=== PATIENT | female | born 1955 | race Caucasian/White ===

== ENCOUNTER 2018-11-23 08:48 | Inpatient (IN) ==
--- NOTE | 2018-10-31 16:26 | PAT Medication Instructions ---
Medication Instructions Date of Service October 31, 2018 Home Medications Naprosyn 1 dose PO UD PRN acetaminophen [Tylenol Extra Strength] 500 mg PO Q8H PRN albuterol sulfate 1 puff INHALATION Q6H PRN amitriptyline 10 mg PO HS ascorbic acid (vitamin C) 500 mg PO BID [Excedrin Migraine] 2 tab PO Q6H PRN calcium carbonate-vitamin D3 1 tab PO QPM docusate sodium 50 mg PO QPM fenofibrate 160 mg PO QPM hydrochlorothiazide 12.5 mg PO QPM lisinopril 20 mg PO QPM loratadine 10 mg PO QAM lorazepam [Ativan] 0.5 mg PO TID PRN melatonin 5 mg PO HS multivitamin 1 tab PO QAM sennosides [Senokot] 8.6 mg PO QPM simvastatin 40 mg PO PM tramadol 50 mg PO Q8H PRN ASK your surgeon for instructions Naprosyn 1 dose PO UD PRN [Excedrin Migraine] 2 tab PO Q6H PRN DO NOT take the morning of surgery ascorbic acid (vitamin C) 500 mg PO BID loratadine 10 mg PO QAM multivitamin 1 tab PO QAM Take morning of surgery With a small sip of water, OTHERWISE NOTHING TO EAT OR DRINK AFTER MIDNIGHT: acetaminophen [Tylenol Extra Strength] 500 mg PO Q8H PRN (if needed, may be taken up to four hours before surgery) albuterol sulfate 1 puff INHALATION Q6H PRN (if needed, and bring with you to the hospital) lorazepam [Ativan] 0.5 mg PO TID PRN (if needed) tramadol 50 mg PO Q8H PRN (if needed, may be taken up to four hours before surgery) Take evening before surgery acetaminophen [Tylenol Extra Strength] 500 mg PO Q8H PRN (if needed) albuterol sulfate 1 puff INHALATION Q6H PRN (if needed) amitriptyline 10 mg PO HS ascorbic acid (vitamin C) 500 mg PO BID calcium carbonate-vitamin D3 1 tab PO QPM docusate sodium 50 mg PO QPM fenofibrate 160 mg PO QPM hydrochlorothiazide 12.5 mg PO QPM lisinopril 20 mg PO QPM lorazepam [Ativan] 0.5 mg PO TID PRN (if needed) melatonin 5 mg PO HS sennosides [Senokot] 8.6 mg PO QPM simvastatin 40 mg PO PM tramadol 50 mg PO Q8H PRN (if needed) Other Notes If you have any questions please call us at [phone] or [phone] or [phone] or [phone]
--- NOTE | 2018-11-01 10:52 | Anesthesiology Consultation ---
Date of Service November 01, 2018 Assessment & Plan (1) Encounter for pre-operative examination: PCP Clearance 10/27/18: "Cleared for surgery as scheduled 11/23/18. Anticoagulation per ortho surgeon." Chart Review Chart Review: Acceptable Risk for Surgery and Patient seen in Pre Admission Testing Teaching & Discussion Instructed NPO after midnight before surgery, except medications with 15 cc of water. Medication instructions provided according to the PAT guidelines. History Surgery Operation Date: 11/23/18 07:30 Proposed Procedures p Left Total Knee Arthroplasty - Kodak Winters MD Height/Weight Height: 5 ft 1 in Weight: 71.7 kg Allergies Allergy/AdvReac Type Severity Reaction Status Date / Time No Known Allergies Allergy Verified 10/27/18 09:39 Medications Home Medications Medication Instructions Recorded Confirmed Last Taken Naprosyn 1 dose PO UD PRN 10/27/18 10/27/18 Unknown acetaminophen [Tylenol Extra 500 mg PO Q8H PRN 10/27/18 10/27/18 Unknown Strength] albuterol sulfate 1 puff INHALATION Q6H PRN 10/27/18 10/27/18 Unknown amitriptyline 10 mg PO HS 10/27/18 10/27/18 Unknown ascorbic acid (vitamin C) [Vitamin 500 mg PO BID 10/27/18 10/27/18 Unknown C] buwdbdh-nvxuyfbgzrhwe-hhdbtmge 2 tab PO Q6H PRN 10/27/18 10/27/18 Unknown [Excedrin Migraine] calcium carbonate-vitamin D3 1 tab PO QPM 10/27/18 10/27/18 Unknown [Calcium 600 + D(3)] docusate sodium 50 mg PO QPM 10/27/18 10/27/18 Unknown fenofibrate 160 mg PO QPM 10/27/18 10/27/18 Unknown hydrochlorothiazide 12.5 mg PO QPM 10/27/18 10/27/18 Unknown lisinopril 20 mg PO QPM 10/27/18 10/27/18 Unknown loratadine 10 mg PO QAM 10/27/18 10/27/18 Unknown lorazepam [Ativan] 0.5 mg PO TID PRN 10/27/18 10/27/18 Unknown melatonin 5 mg PO HS 10/27/18 10/27/18 Unknown gzsyamyehaux-aekmytlh-sdnufy 1 tab PO QAM 10/27/18 10/27/18 Unknown [Multivitamin 50 Plus] sennosides [Senokot] 8.6 mg PO QPM 10/27/18 10/27/18 Unknown simvastatin 40 mg PO PM 10/27/18 10/27/18 Unknown tramadol 50 mg PO Q8H PRN 10/27/18 10/27/18 Unknown Past Medical History Medical History Anxiety Asthma RARELY USES PRN INH Cardiac murmur Mild tricuspid regurg noted on 07/12/18 echo done to evaluate murmur. Murmur not appreciated on exam at [facility]. Chronic headache Depression History of ovarian cyst Had ex lap for this 2/2 rupture, ended up having appy. 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 Spinal stenosis Exercise / Class Metabolic Activity II 4-5 Yardwork/Stairs/Walk up hill (denies CP or SOB with stairs) Past Family History Family History Aunt Family history of diabetes mellitus Uncle Family history of diabetes mellitus Mother Family history of diabetes mellitus Brother Family history of diabetes mellitus Past Surgical History Surgical History History of section History of colonoscopy History of exploratory laparotomy W /APPENDECTOMY History of lumbar spinal fusion History of surgery LYSIS OF ABDOMINAL ADHESIONS X 2 History of tonsillectomy Nausea and vomiting after administration of anesthetic agent Past Anesthesia History No Hx of Anesthesia Complications (other than PONV) and No Family Hx of Anesthesia Complications History of PONV No Hx of Motion Sickness and History of PONV Social History Smoking Status: Never smoker Do You Dip or Chew Tobacco: No Hx Alcohol Use: Yes alcohol intake frequency: holidays/special occasions only Hx Substance Use: No substance use type: does not use Review of Systems Pt denies any recent chest pain, shortness of breath, palpitations, cough, fever or URI. Physical Exam Vital Signs BP: 117/75 P: 86bpm SPO2: 97% RA T: 98.5 F R: 14 ENMT Mouth: + dental restorations (several crowns) and + chipped teeth (tiny chips on front upper incisors); no loose teeth Thyromental Distance: < 3.5 Finger Breadths (3) Mallampati Class: I Neck normal visual inspection; neck extension not limited Respiratory normal respiratory effort Auscultation: lungs clear to auscultation bilaterally Cardiovascular Rate/Rhythm: regular rate and regular rhythm Heart Sounds: no murmur Vessels: no carotid bruit Extremities: no edema Testing Electrocardiogram Date: 10/27/18 Findings: + NSR @ (82) and + RBBB Baseline artifact. Interpretation of this ECG, although attempted, may be adversely affected by data quality. T wave abnormality, consider inferolateral ischemia. *done at pre-op PCP clearance and reviewed by PCP. Chest X-Ray Date: 11/01/18 Findings: + NAD Echocardiogram Date: 07/12/18 EF: 60-64% LV cavity size is normal. There is isolated basal septal hypertrophy with maximal thickness of 1.5cm consistent with sigmoid septum--there is no dynamic LV outflow tract obstruction at rest. RV cavity size is normal, and RV systolic function is normal. Mild TR. Laboratory Results 11/01/18 11:18 11/01/18 11:18 Blood Type A Positive 11/01/18 11:18 Antibody Screen NEGATIVE 11/01/18 11:18 PT 10.3 Seconds (9.0-12.0) 11/01/18 11:18 INR 1.0 (0.9-1.1) 11/01/18 11:18 APTT 25.4 Seconds (21.0-31.0) 11/01/18 11:18 Hemoglobin A1c 6.1 % (4.5-5.6) H 11/01/18 11:18 Urine Color Yellow 11/01/18 11:18 Urine Appearance Clear (Clear) 11/01/18 11:18 Urine pH 5.0 (4.5-7.5) 11/01/18 11:18 Ur Specific [place] 1.027 (1.000-1.030) 11/01/18 11:18 Urine Protein Negative (Negative) 11/01/18 11:18 Urine Glucose (UA) Negative (Negative) 11/01/18 11:18 Urine Ketones Negative (Negative) 11/01/18 11:18 Urine Nitrite Negative (Negative) 11/01/18 11:18 Ur Leukocyte Esterase Trace (Negative) H 11/01/18 11:18 Urine WBC (Auto) 5-10 /hpf (0-5) H 11/01/18 11:18 Urine RBC (Auto) >30 /hpf (0-4) H 11/01/18 11:18 U Hyaline Cast (Auto) 1-5 /lpf (0-5) 11/01/18 11:18 U Epithel Cells (Auto) >30 /lpf (0-5) H 11/01/18 11:18 Urine Bacteria (Auto) 2+ (Negative) H 11/01/18 11:18 11/01/18 11:18 Urine Culture - Preliminary Urine,Clean Catch Gram negative bacilli Gram negative bacilli#2
--- NOTE | 2018-11-01 11:45 | XRay Report ---
XR chest Pre-admission PA/Lat CLINICAL HISTORY: Preoperative chest COMPARISON STUDY: No previous studies for comparison. FINDINGS: The cardiac and mediastinal contours are normal. There is no evidence of focal pulmonary co nsolidation. There is no evidence of failure. No pleural effusions are visualized.[ A 3 mm density at the left lung base likely represents a summation or postinflammatory nodule. Degenerative changes ar e present within the dorsal spine. IMPRESSION: No active disease in the chest. Electronically signed by: Jens Webb M.D. 11/01/2018 11:43 AM
[2018-11-01 13:29] LABS: Albumin Level 3.9 gm/dl (3.4-5.0); BUN Creatinine Ratio 37.8 (10-20); Calcium 10.3 mg/dl (8.5-10.1); Creatinine Clr Calc Pharmacy 69.5 ml/min; Est GFR (African American) 97.4; Est GFR (Non-African American) 84.1; Potassium 3.4 mmol/L (3.5-5.1)
[2018-11-01 13:30] LABS: Estimated Average Glucose 128 mg/dl; Hemoglobin A1C 6.1 % (4.5-5.6)
[2018-11-01 13:32] LABS: Appearance Urine Clear (Clear); Bacteria Urine Automated 2+ (Negative); Bilirubin Urine Negative (Negative); Blood Urine 1+ (Negative); Color Urine Yellow; Epithelial Cell Urine Auto >30 /lpf (0-5); Glucose Urine UA Negative (Negative); Ketones Urine Negative (Negative); Leukocyte Esterase Urine Trace (Negative); Nitrite Urine Negative (Negative); Protein Urine Negative (Negative); Specific Gravity Urine 1.027 (1.000-1.030); Urobilinogen Urine Negative (Negative)
[2018-11-01 13:33] LABS: Partial Thromboplastin Ratio 0.9; Partial Thromboplastin Time 25.4 Seconds (21.0-31.0); Prothrombin Time 10.3 Seconds (9.0-12.0)
[2018-11-01 14:18] LABS: Basophils # (auto) 0.03 K/uL (0-0.2); Basophils % (auto) 0.5 %; Eosinophils # (auto) 0.13 K/uL (0-0.5); Eosinophils % (auto) 2.1 %; Hematocrit (blood only) 36.9 % (37-47); Hemoglobin 12.4 g/dL (12.0-16.0); Immature Granulocytes # (auto) 0.01 K/uL (0.00-0.02); Immature Granulocytes % (auto) 0.2 %; Lymphocytes # (auto) 2.89 K/uL (1.2-3.4); Lymphocytes % (auto) 46.1 %; Mean Corpuscular Hgb Conc 33.6 g/dL (32-36); Mean Corpuscular Volume 95.8 fL (80-100); Mean Platelet Volume 9.8 fL (7.4-10.4); Monocytes # (auto) 0.59 K/uL (0.11-0.59); Monocytes % (auto) 9.4 %; Neutrophils # (auto) 2.62 K/uL (1.4-6.5); Neutrophils % (auto) 41.7 %; Platelet Count 346 K/uL (130-400); RDW Standard Deviation 45.6 fL (36.4-46.3); Red Blood Count 3.85 M/uL (4.2-5.4); White Blood Count 6.27 K/uL (4.8-10.8)
[2018-11-01 14:39] LABS: RBC Urine Automated >30 /hpf (0-4)
--- NOTE | 2018-11-22 22:11 | History and Physical Report ---
DATE OF ADMISSION: 11/23/2018 CHIEF COMPLAINT: Chronic left knee pain. HISTORY OF PRESENT ILLNESS: This is a 63-year-old female patient of Dr. Winters'shawn complaining of chronic left knee pain, longstanding, now progressively getting worse. The patient has been diagnosed with end-stage osteoarthritis per clinical and radiographic exams. The patient has failed conservative treatment including intra-articular injections, anti-inflammatories, acetaminophen, doctor-directed home exercise program, and the use of a brace. The patient has increased pain with weightbearing activities and her pain does interfere with her activities of daily living. PAST MEDICAL HISTORY: Heart murmur, which is mitral regurgitation, right bundle branch block, hypertension, hypercholesterolemia, asthma, anemia, spine problems, sciatica, and obesity. SOCIAL HISTORY: Nonsmoker, nondrinker. PAST SURGICAL HISTORY: Tonsillectomy, appendectomy, lysis of abdominal adhesions, , lumbar spine surgery. FAMILY HISTORY: Noncontributory. REVIEW OF SYSTEMS: Chronic left knee pain and instability. Otherwise, denies any shortness of breath, chest pain, nausea, vomiting or any other joint complaints. MEDICATIONS: 1. Stool softener daily at bedtime. 2. Calcium 600 D daily. 3. Tylenol Extra Strength 500 mg as needed. 4. Ibuprofen 200 mg as needed. 5. Tramadol 50 mg as needed. 6. Ventolin HFA 90 mcg actuation inhaler 2 puffs every 4-6 hours as needed. 7. Ativan 0.5 mg 3 times daily as needed. 8. Centrum Silver daily. 9. Vitamin C 500 mg daily. 10. Loratadine 10 mg daily. 11. Lisinopril 20 mg daily. 12. Fenofibrate 160 mg daily. 13. Hydrochlorothiazide 12.5 mg daily. 14. Simvastatin 40 mg daily. 15. Amitriptyline 10 mg daily. ALLERGIES: No known drug allergies. PHYSICAL EXAMINATION: GENERAL: Well-developed, well-nourished, 63-year-old female in no acute distress. She is alert and oriented x3 and pleasant. HEENT: Normocephalic, atraumatic. Extraocular motions are intact. Pupils are equal and reactive to light. HEART: Regular rate and rhythm, no murmurs. LUNGS: Clear. ABDOMEN: Soft, nontender, bowel sounds present. EXTREMITIES: Left knee reveals limited range of motion of 0-120 degrees. She has medial joint line tenderness with a mild effusion. The patient has crepitation with passive range of motion. She has 5/5 strength with pain. NEUROLOGIC: Neurovascularly, she is intact in her left lower extremity. DIAGNOSES: Left knee end-stage osteoarthritis, history of a heart murmur with mitral regurgitation and right bundle branch block, hypertension, hypercholesterolemia, asthma, anxiety, anemia, spine problems, sciatica, and obesity. PLAN: The patient was advised of her diagnosis. Indications, risks, benefits, postop course have all been reviewed. The patient wished to proceed with a left total knee arthroplasty. Necessary consent forms, preoperative testing and clearances will be obtained.
[~2018-11-23 08:48] MED LIST: ACETAMINOPHEN 500 MG TAB PO SCH; BUPIVACAINE 0.5 % 5 MG/1 ML PF 10ML VIAL ONE; CEFAZOLIN 1000MG 1,000 MG/7.5 ML SYR IV SCH; CeleBREX 200 MG CAP PO SCH; EPINEPHrine INJ 1 MG/ML AMP ONE; FAMOTIDINE 20 MG TAB PO SCH; GABAPENTIN 300 MG x 2 PO SCH; LR 15ML/HR IV SCH; METOCLOPRAMIDE HCL 10 MG TABLET PO SCH; ROPIVACAINE 0.5% 5 MG/ML 30 ML VIAL ONE; ROPIVACAINE 0.5% HCL/PF 150 MG, BUPIVACAINE 0.5% MPF 30 ML, EPINEPHrine 30MG/30ML (OR U... INFIL SCH; TRANEXAMIC ACID 1,000 MG **IV Intra-op IV SCH; TRANEXAMIC ACID 1,000 MG **IV Pre-op IV SCH; dexAMETHasone 4 MG TAB PO SCH
[2018-11-23] MEDS ORDERED: ATROPINE SULFATE 0.1 MG/ML 10ML SYR IV PRN (09:51)
[2018-11-23] MEDS ORDERED: MEPERIDINE HCL 25 MG/ML CARP IV PRN (09:51)
[2018-11-23] MEDS ORDERED: fentaNYL citrate 100 MCG/2 ML VIAL IV PRN (09:51)
[2018-11-23] MEDS ORDERED: ONDANSETRON INJ 2 MG/ML 2 ML VIAL IV PRN ×2 (09:51→15:15)
[2018-11-23] MEDS ORDERED: ePHEDrine sulfate 50 MG/ML AMP IV PRN (09:51)
[2018-11-23] MEDS ORDERED: LABETALOL HCL IV 5 MG/ML 20ML IV PRN (09:51)
[2018-11-23] MEDS ORDERED: HYDROmorphone INJ 1 MG/ML SYRINGE IV PRN (09:51)
[2018-11-23] MEDS ORDERED: PHENYLEPHRINE 100MCG/ML 5ML SYR IV PRN (09:51)
[2018-11-23] MEDS ORDERED: fentaNYL citrate 100 MCG/2 ML VIAL ONE (10:54)
[2018-11-23] MEDS ORDERED: MIDAZOLAM HCL 1 MG/ML 2ML VIAL ONE (10:54)
--- NOTE | 2018-11-23 11:28 | History & Physical Bridge Note ---
Date of Service November 23, 2018 History & Physical Bridge Note I have examined the patient, reviewed the History & Physical and in the interval since the performance of the History & Physical I have noted the following changes of clinical significance: no changes noted
[2018-11-23] MEDS ORDERED: POVIDONE-IODINE OP SOLN 30 ML BTL ONE (11:31)
[2018-11-23] MEDS ORDERED: ORTHO JOINT ANESTHETIC ONE (11:31)
[2018-11-23] MEDS ORDERED: BACITRACIN INJ 50,000 UNIT VIAL ONE (11:32)
[2018-11-23] MEDS ORDERED: PHENYLEPHRINE 100MCG/ML 5ML SYR ONE (11:57)
[2018-11-23] MEDS ORDERED: PROPOFOL IV EMULSION 10 MG/ML 20 ML VIAL IV ONE (11:57)
[2018-11-23] MEDS ORDERED: LIDOCAINE HCL 2% 2 ML VIAL/AMP(20MG/ML) INFIL ONE (11:57)
--- NOTE | 2018-11-23 13:41 | Post Operative Brief Note ---
Immediate Post Op Note v1 Date of Surgery November 23, 2018 Pre & Post Diagnosis Operation Date: 11/23/18 11:15 Pre-Op Diagnosis: Left Knee Degenerative Joint Disease Post-Op Diagnosis: Left Knee Degenerative Joint Disease Procedure Operation Date: 11/23/18 11:15 Actual Procedures p Left Total Knee Arthroplasty(Left) - Kodak Winters MD Surgeon Kodak Winters MD Manager Of Pmo Valentin GARCÍA Estimated Blood Loss 5 Findings Consistent with Post-Op Diagnosis Specimens Bone cuts Drains Hemovac Drain Complications none Disposition Accompanied Patient To Recovery: No Disposition: Recovery Room Overlapping Procedure I was immediately available: during the entire case.
--- NOTE | 2018-11-23 14:09 | XRay Report ---
XR knee LT 2V routine CLINICAL HISTORY: Surgical Post Op postoperative evaluation COMPARISON: None. DISCUSSION: Anatomic alignment post total left knee arthroplasty. Good contact during prosthetic and underlying bone. Surgical drains are in position. Expected soft tissue postoperative change IMPRESSION: No acute process post total left knee arthroplasty. The above report was generated using voice recognition software. It may contain grammatical, syntax or spelling errors. Electronically signed by: Valentin Fournier M.D. 11/23/2018 2:08 PM
--- NOTE | 2018-11-23 14:14 | Operative Report ---
Post Operative Report Pre & Post Diagnosis Operation Date: 11/23/18 11:15 Pre-Op Diagnosis: Left Knee Degenerative Joint Disease Post-Op Diagnosis: Left Knee Degenerative Joint Disease Procedure Operation Date: 11/23/18 11:15 Actual Procedures p Left Total Knee Arthroplasty(Left) - Kodak Winters MD Surgeon Kodak Winters MD Kinesiology Professor Valentin GARCÍA Estimated Blood Loss 5 Findings Consistent with Post-Op Diagnosis Specimens Bone cuts Drains 2 Hemovac Anesthesia Type Spinal MAC Complications none Disposition Accompanied Patient To Recovery: No Disposition: Recovery Room Indications 63-year-old female with progressive osteoarthritis in her left knee. She failed conservative management. X-rays demonstrate that she is qrov-wl-lbwa medial compartment she has a varus knee. She has tricompartmental osteoarthritic changes. Description of Procedure Patient taken to the operating room placed supine on the operating table and anesthetized under spinal MAC general block anesthesia. Exam under anesthesia demonstrated slight flexion contracture by 5 degrees and flexion 130 degrees. A varus knee. No instability.. A pneumatic tourniquet was placed about the thigh of the left lower extremity. The left lower extremity was prepped and draped in usual fashion. We used DuraPrep due to a ChloraPrep allergy. Leg was elevated exsanguinated with an Esmarch bandage and the pneumatic was raised to 300 mm mercury. An anterior incision was made across the left knee. The skin was incised longitudinally subcutaneous flaps were elevated and an incision was made through the medial retinaculum extending up into the mid third of the quadriceps tendon and extended down to the medial tibial tubercle. Intra-articular findi ngs demonstrated perk-oe-iijg medial compartment posterior medial osteophytes loose bodies tricompartmental DJD [id number] the medial compartment with a varus knee.. The knee was exposed by excising the infrapatellar fat pad, excising the meniscal remnants and cruciate ligaments or remnants of the ligaments. Any inflamed synovial tissue was resected. The fat pad over the anterior femur was resected for placement of the component in that area. The lateral synovial bands were release. Appropriate releases were performed to balance ligaments. The femur was exposed. The custom femoral cutting block was pinned in position. The distal femoral cutting block was applied. The distal femoral cut was made with the oscillating saw. The size 5, 4-in-1 cutting block was placed. The anterior and posterior chamfer cuts were made. The knee was extended and a subperiosteal peel lateral release was performed around the patella. The patella width was measured and width was reproduced using freehand cut technique. The 32 x 8.5 millimeter symmetrical patella was used. 3 drill holes are made for the pegs. The tibia was exposed. A custom tibial cutting block was positioned and drill holes were made for the cutting guide. Cutting guide was placed and the proximal cut was made with the oscillating saw. All osteophytes were resected. The lamina waist presser was used to assess ligamentous balance and the ligaments were balanced in extension and flexion. The tibia was reexposed and measured for a size C tibial component. This was externally rotated in line with the tibial tubercle and the fixation pins were drilled. The proximal tibia was fashioned with the drill and punch. The size 5 femoral trial was inserted. The trial MC inserts were used. The 13 mm MC insert gave balanced ligaments through full range of motion. The patella tracked slightly laterally with some slight liftoff so I went ahead and performed a lateral release leaving the synovium intact and the patella tracked centrally. the trials were removed. The orthomix anesthetic cocktail was injected per protocol. The knee was then copiously irrigated with pulsatile lavage antibiotic solution with bacitracin. The final components were cemented with Simplex cement. The final components were persona size 5 narrow CR femoral component the C left tibia the 13 MC polyethylene tibial insert, the 32 x 8.5 mm symmetrical patella. While the cement cured with the knee in full extension the Betadine soak was used per protocol. After the cement cured, the knee joint was copiously irrigated with antibiotic solution with bacitracin. 2 drains were brought out laterally and connected to a Hemovac. The quadriceps tendon and medial retinaculum were closed with interrupted [id number] #1 Vicryl sutures. The knee was taken through a full range of motion and repair was secure. The subcutaneous tissues were closed with 2-0 Vicryl sutures and skin was closed with xin. Sterile Silverlon dressings were applied and the patient tolerated the procedure well. Valentin GARCÍA my physician assistant analyst, assisted in soft tissue retraction instrument management leg positioning the closure and will participate in the postoperative care of the patient. I attest to the content of the Intraoperative Record and any orders documented therein. Any exceptions are noted below.
--- NOTE | 2018-11-23 14:29 | Anesthesiology Progress Note ---
Date of Service November 23, 2018 Anesthesia Post Procedure Vital Signs Vital Signs: Temp Pulse Pulse Resp BP Pulse Ox 11/23/18 14:15 85 19 114/67 95 11/23/18 14:05 84 19 116/65 97 11/23/18 13:55 82 17 120/65 100 11/23/18 13:45 37.4 C 86 18 124/64 99 11/23/18 09:26 36.8 C 84 20 130/78 95 Pain Intensity Left Knee: Pain Intensity: 0 Transfer of Care Handoff Completed per policy Notes Mental Status: alert / awake / arousable Patient Amnestic to Procedure: Yes Nausea / Vomiting: adequately controlled Pain: adequately controlled Airway Patency, RR, SpO2: stable & adequate BP & HR: stable & adequate Hydration State: stable & adequate Neuraxial Anesthesia: was administered and sensory block is resolving Anesthetic Complications: no major complications apparent and Pt Satisfied with anesthetic care
[2018-11-23] MEDS ORDERED: SODIUM CHLORIDE 0.9% 1000ML 1,000 ML IV SCH (15:15)
[2018-11-23] MEDS ORDERED: HYDROmorphone INJ 0.5 MG/0.5 ML SYR IV PRN (15:15)
[2018-11-23] MEDS ORDERED: ALBUTEROL HFA 8 GM INHALER INH PRN (15:15)
[2018-11-23] MEDS ORDERED: MAGNESIUM HYDROXIDE SUSP 30 ML UDC PO PRN (15:15)
[2018-11-23] MEDS ORDERED: NALOXONE HCL 0.4 MG/1 ML VIAL/CARP IV PRN (15:15)
[2018-11-23] MEDS ORDERED: BISACODYL 10 MG SUPP PR PRN (15:15)
[2018-11-23] MEDS ORDERED: METOCLOPRAMIDE HCL INJ 5 MG/ML 2 ML VIAL IV PRN (15:15)
[2018-11-23] MEDS: FENOFIBRATE~ORDER AWAITING ACTION SCH (15:46)
--- NOTE | 2018-11-23 19:05 | Consultation ---
Date of Consultation November 23, 2018 Assessment & Plan (1) Osteoarthritis of left knee: S/P L TKA by Dr. Winters POD #0 EBL 5ml tolerated procedure well pain/wound per ortho activity and therapies as directed by ortho monitor cbc for abl anemia encourage incentive spirometry Pt treated for UTI pre operatively - found during pre op exam > 80k ecoli, treated with Bactrim DS bid x 7 days repeat urinalysis (2) Hypertension: blood pressure controlled, on lower side On Lisinopril and HCTZ Hold HCTZ and Lisinopril until volume status and bmp re evaluated in the a.m. Current BP 117/77 (3) Hyperlipidemia: Continue simvistatin (4) Asthma: well controlled albuterol prn (5) Chronic headache: amitriptyline at HS (6) Anxiety: lorazepam prn mood stable (7) DVT prophylaxis: Per ortho Disposition: Per primary Follow up: PCP Zuleyma Marcum Patient was seen and examined in collaboration with Dr. Sapp, please see addendum Starting 11/24/18 pt will be under the care of Dr. Carter Thank you for this consultation. We will follow the patient with you during their hospital stay. You can reach a member of the [facility] Hospitalist Team 18/01 via pager @ [phone]. Supervising Physician Co-Signing Physician Notes Attending addendum: The patient was seen and examined in the medical floor This is a 63-year-old female who has a significant PMH of HTN, HLD, asthma, spinal stenosis, end-stage left knee osteoarthritis who presents to [facility] for elective left TKA by Dr. Winters She is a status post left TKA today Denies any significant symptoms except pain in the left knee On examination Sitting in a chair without any symptoms Hemodynamically stable Chest-clear to auscultate bilaterally Heart-S1-S2, 2/6 systolic murmur over precordium Abdomen-benign Extremities-trace edema bilateral [employer]USTRI[employer]-alert, awake and oriented x3 Labs and imaging studies reviewed Medically stable Agree with assessment and plan as outlined above by KATINA Arreola Dr History of Present Illness Requesting Physician: Dr. Winters Reason for Consultation: Postop medical management Attending Physician: Kodak Winters MD History of Present Illness This is a 63-year-old female who has a significant PMH of HTN, HLD, asthma, spinal stenosis, end-stage left knee osteoarthritis who presents to [facility] for elective left TKA by Dr. Winters. Currently pt feels well. Complains of minimal L knee pain. Denies f/c/s, dizziness, lightheaded, chest pain, sob, palpitations, n/v/d. She has had 2 cups of jello post operatively and tolerated well. She offers no postoperative complaints. Of significance during patient's preoperative testing her urinalysis was positive for UTI, 80,000 E. coli. She was treated with 7-day course of Bactrim. She was asymptomatic. Allergies Allergy/AdvReac Type Severity Reaction Status Date / Time chlorhexidine AdvReac Intermediate pitt skin Verified 11/23/18 09:19 Home Medications Home Medications Medication Instructions Recorded Confirmed Type Naprosyn 1 dose PO UD PRN 10/27/18 11/23/18 History acetaminophen [Tylenol Extra 500 mg PO Q8H PRN 10/27/18 11/23/18 History Strength] albuterol sulfate 1 puff INHALATION Q6H PRN 10/27/18 11/23/18 History amitriptyline 10 mg PO HS 10/27/18 11/23/18 History ascorbic acid (vitamin C) [Vitamin 500 mg PO BID 10/27/18 11/23/18 History C] sirfcqs-vranbwsyfuhvj-qpnkbqkb 2 tab PO Q6H PRN 10/27/18 11/23/18 History [Excedrin Migraine] calcium carbonate-vitamin D3 1 tab PO QPM 10/27/18 11/23/18 History [Calcium 600 + D(3)] docusate sodium 50 mg PO QPM 10/27/18 11/23/18 History fenofibrate 160 mg PO QPM 10/27/18 11/23/18 History hydrochlorothiazide 12.5 mg PO QPM 10/27/18 11/23/18 History lisinopril 20 mg PO QPM 10/27/18 11/23/18 History loratadine 10 mg PO QAM 10/27/18 11/23/18 History lorazepam [Ativan] 0.5 mg PO TID PRN 10/27/18 11/23/18 History melatonin 5 mg PO HS 10/27/18 11/23/18 History szzcdspyokzb-tbpepabz-ikzfjh 1 tab PO QAM 10/27/18 11/23/18 History [Multivitamin 50 Plus] sennosides [Senokot] 8.6 mg PO QPM 10/27/18 11/23/18 History simvastatin 40 mg PO PM 10/27/18 11/23/18 History tramadol 50 mg PO Q8H PRN 10/27/18 11/23/18 History Patient History Family History Aunt Family history of diabetes mellitus Uncle Family history of diabetes mellitus Mother Family history of diabetes mellitus Brother Family history of diabetes mellitus Social History Preferred Language: Armenian Communication Ability: Effective Disposition Clerk Required: No Beliefs That Will Affect Care: None Current Living Situation: Spouse current occupation: RN Other Information That Helps Us Care for You: No Feels Safe at Home: Yes Safety Concerns: Feels Safe At This Time Smoking Status: Never smoker Do You Dip or Chew Tobacco: No Second Hand Exposure: Yes ( IS A SMOKER) Hx Alcohol Use: Yes Hx Substance Use: No Review of Systems Review of Systems: As noted per HPI, 10 systems reviewed and negative unless noted above. Physical Exam Physical Exam: Gen: WD/WN, F, NAD, sitting up in bed, pleasant, conversing eas deanna Head: Normocephalic, Atraumatic Eyes: Sclera normal, no conjunctival injection, PERRLA, EOMI ENT: Gross hearing intact, normal pharynx, mucous membranes moist Neck: supple, no adenopathy, No JVD, no bruit, Resp: Clear to auscultation b/l, no wheeze, rales, rhonchi. Normal insp/exp effort, no accessory muscle use CV: Regular rate, regular rhythm, soft 1/6 MONO LUSB, rub, gallop, or ectopy Abd: +BS x 4, soft, nontender, nondistended Musculoskeletal: moves extremities active rom x 3, LLE not tested, strength intact, good gas producer strength, LLE Dressing CDI, hemovac in place Extremities: No edema bilaterally Skin: warm, moist, no rash, negative turgor, cap refill < 2sec Neuro: Alert and oriented x 3, speech normal, good mood/affect, cran nerve 2-12 intact grossly : deferred Results & Data Vital Signs (Past 12 Hours) Vital Signs Temp Pulse Pulse Pulse Resp BP Pulse Ox 11/23/18 17:56 37.3 C 86 16 117/77 94 11/23/18 17:25 37.1 C 79 16 124/76 95 11/23/18 15:57 36.6 C 88 16 122/83 100 11/23/18 15:28 36.6 C 84 16 129/81 99 11/23/18 15:00 36.6 C 86 16 102/61 95 11/23/18 14:45 37.3 C 81 17 104/63 95 11/23/18 14:35 86 18 109/64 95 11/23/18 14:25 86 18 105/63 97 11/23/18 14:15 85 19 114/67 95 11/23/18 14:05 84 19 116/65 97 11/23/18 13:55 82 17 120/65 100 11/23/18 13:45 37.4 C 86 18 124/64 99 11/23/18 09:26 36.8 C 84 20 130/78 95 Laboratory Results Preoperative lab work H/H 13.2/40.2 A1c 6.1 Creatinine 0.76 Total chol 213, HDL 51, LDL 147, trig 153 Diagnostic Findings Knee Xray: IMPRESSION: No acute process post total left knee arthroplasty. CXR: IMPRESSION: No active disease in the chest. Medications Administered Miscellaneous (Order Awaiting Action) 1 ea N/A QS NAUN Stop: 12/23/18 15:59 Last Admin: 11/23/18 15:46 Dose: Not Given Documented by: [id number] Miscellaneous (Order Awaiting Action) 1 ea N/A QS NAUN Stop: 12/23/18 15:59 Last Admin: 11/23/18 15:46 Dose: Not Given Documented by: [id number] Discontinued Medications Acetaminophen (Tylenol) 1,000 mg PO PREOP NAUN Stop: 11/23/18 18:00 Last Admin: 11/23/18 09:46 Dose: 1,000 mg Documented by: [id number] Bacitracin (Bacitracin) Confirm Administered Dose 50,000 units .ROUTE .STK-MED ONE Stop: 11/23/18 11:33 Last Admin: 11/23/18 12:15 Dose: 50,000 units Documented by: [id number] Celecoxib (Celebrex) 200 mg PO PREOP NAUN Stop: 11/23/18 18:00 Last Admin: 11/23/18 09:46 Dose: 200 mg Documented by: [id number] Dexamethasone (Decadron) 8 mg PO PREOP NAUN Stop: 11/23/18 18:00 Last Admin: 11/23/18 09:45 Dose: 8 mg Documented by: [id number] Famotidine (Pepcid) 20 mg PO PREOP NAUN Stop: 11/23/18 18:00 Last Admin: 11/23/18 09:47 Dose: 20 mg Documented by: [id number] Gabapentin (Neurontin) 600 mg PO PREOP NAUN Stop: 11/23/18 18:00 Last Admin: 11/23/18 09:46 Dose: 600 mg Documented by: [id number] Lactated Ringer's (Lr) 1,000 mls @ 15 mls/hr IV .Q24H NAUN Stop: 11/24/18 05:59 Last Infusion: 11/23/18 11:52 Dose: 0 mls/hr Documented by: [id number] Infusion: 11/23/18 10:21 Dose: 15 mls/hr Documented by: [id number] Admin: 11/23/18 09:45 Dose: 999 mls/hr Documented by: [id number] Cefazolin Sodium (Ancef 1000mg) 1,000 mg in 7.5 mls @ 2.5 mls/min IV PREOP NAUN; Protocol Stop: 11/23/18 18:00 Last Admin: 11/23/18 11:47 Dose: 2.5 mls/min Documented by: [id number] Tranexamic Acid 1,000 mg/ (Sodium Chloride) 110 mls @ 660 mls/hr IV TODAY@0600 NAUN Stop: 11/23/18 06:09 Last Infusion: 11/23/18 11:39 Dose: 0 mls/hr Documented by: [id number] Admin: 11/23/18 11:29 Dose: 660 mls/hr Documented by: [id number] Tranexamic Acid 1,000 mg/ (Sodium Chloride) 110 mls @ 660 mls/hr IV 0630 [facility] Stop: 11/23/18 06:39 Last Admin: 11/23/18 15:41 Dose: Not Given Documented by: [id number] Ropivacaine 150 mg/Bupivacaine HCl 30 ml/Epinephrine HCl 0.15 mg/Ketorolac Tromethamine 30 mg/Dexamethasone 4 mg/ Ketamine HCl 10 mg/ Clonidine HCl 100 mcg/ Sodium Chloride 93.35 mls @ 0 mls/hr INFIL TODAY@0600 NAUN Stop: 11/23/18 06:01 Last Admin: 11/23/18 12:15 Dose: 93.35 mls/hr Documented by: [id number] Metoclopramide HCl (Reglan) 10 mg PO PREOP [facility] Stop: 11/23/18 18:00 Last Admin: 11/23/18 09:46 Dose: 10 mg Documented by: [id number] Miscellaneous (Ortho Joint Anesthetic) Confirm Administered Dose 1 ea .ROUTE .STK-MED ONE Stop: 11/23/18 11:32 Last Admin: 11/23/18 12:15 Dose: Not Given Documented by: [id number] Povidone Iodine (Betadine Ophthalmic Prep) Confirm Administered Dose 30 ml .ROUTE .STK-MED ONE Stop: 11/23/18 11:32 Last Admin: 11/23/18 12:15 Dose: 20 ml Documented by: [id number] ECG Rate (beats per minute): 62 Rhythm: normal sinus
[2018-11-23 20:23] LABS: Appearance Urine Clear (Clear); Bacteria Urine Automated Negative (Negative); Bilirubin Urine Negative (Negative); Blood Urine 1+ (Negative); Color Urine Yellow; Epithelial Cell Urine Auto >30 /lpf (0-5); Glucose Urine UA Negative (Negative); Ketones Urine Negative (Negative); Leukocyte Esterase Urine Trace (Negative); Nitrite Urine Negative (Negative); Protein Urine Negative (Negative); Specific Gravity Urine 1.017 (1.000-1.030); Urobilinogen Urine Negative (Negative); pH Urine 7.5 (4.5-7.5)
[2018-11-23] MEDS ORDERED: hydroCHLOROthiazide 25 MG TAB PO SCH (21:00)
[2018-11-23] MEDS ORDERED: NON-FORMULARY MEDICATION (Melatonin 5 MG) PO SCH (21:00)
[2018-11-23] MEDS ORDERED: DOCUSATE SODIUM 50 MG PO SCH (21:00)
[2018-11-23] MEDS ORDERED: SENNA 8.6 MG TAB PO SCH (21:00)
[2018-11-23] MEDS: CEFAZOLIN 1000MG 1,000 MG/7.5 ML SYR IV SCH (21:07)
[2018-11-23] MEDS: CeleBREX 200 MG CAP PO SCH (21:07)
[2018-11-23] MEDS: DOCUSATE SODIUM 100 MG CAP PO SCH (21:08)
[2018-11-23] MEDS: AMITRIPTYLINE HCL 10 MG TAB PO SCH (21:08)
[2018-11-23] MEDS: ASCORBIC ACID 500 MG TAB PO SCH (21:08)
[2018-11-23] MEDS: SENNA 8.6 MG TAB PO SCH (21:08)
[2018-11-23] MEDS: SIMVASTATIN 40 MG TAB PO SCH (21:08)
[2018-11-23] MEDS: CALCIUM 600MG + VIT D 400 IU TAB PO SCH (21:09)
[2018-11-23] MEDS: ACETAMINOPHEN 500 MG TAB PO SCH (21:09)
[2018-11-23] MEDS: LORATADINE 10 MG TAB PO SCH (21:38)
[2018-11-23] MEDS: LORazepam 0.5 MG TAB PO PRN (21:41)
[2018-11-24] MEDS: FENOFIBRATE~ORDER AWAITING ACTION SCH ×3 (01:10→16:24)
[2018-11-24] MEDS: CEFAZOLIN 1000MG 1,000 MG/7.5 ML SYR IV SCH (04:59)
[2018-11-24] MEDS: ACETAMINOPHEN 500 MG TAB PO SCH ×3 (05:05→20:42)
[2018-11-24 05:44] LABS: Hematocrit (blood only) 33.5 % (37-47); Hemoglobin 11.3 g/dL (12.0-16.0); Mean Corpuscular Hgb Conc 33.7 g/dL (32-36); Mean Corpuscular Volume 95.2 fL (80-100); Mean Platelet Volume 9.2 fL (7.4-10.4); Platelet Count 324 K/uL (130-400); RDW Coefficient of Variation 12.8 % (11.5-14.5); RDW Standard Deviation 44.4 fL (36.4-46.3); Red Blood Count 3.52 M/uL (4.2-5.4); White Blood Count 11.88 K/uL (4.8-10.8)
[2018-11-24 06:18] LABS: BUN Creatinine Ratio 34.8 (10-20); Calcium 9.6 mg/dl (8.5-10.1); Creatinine Clr Calc Pharmacy 66.3 ml/min; Est GFR (African American) 94.4; Est GFR (Non-African American) 81.5; Potassium 3.6 mmol/L (3.5-5.1)
[2018-11-24] MEDS: TRAMADOL HCL 50 MG TABLET PO PRN ×2 (07:50→11:52)
--- NOTE | 2018-11-24 08:27 | Orthopedic Progress Note ---
Date of Service November 24, 2018 Assessment & Plan (1) Osteoarthritis of left knee: POD #1, Left TKA PT/ OT DVT proph- ASA, SCD's, TEDS D/C planning- Home w OPPT As per medicine. Subjective POD #1, Doing well, Denies SOB, CP, N/V. Pain controlled well. Patient was treated for UTI pre op with Bactrim, medicine re checking U/A. Physical Exam Physical Exam: Left knee dressings/ drain c/d/i, no drainage. Toes/ ankle mobile. No calf tenderness. A&Ox3. Results & Data Vital Signs (Past 12 Hours) Vital Signs Temp Pulse Resp BP Pulse Ox 11/24/18 07:13 36.8 C 92 H 18 126/75 98 11/23/18 22:50 36.9 C 90 18 119/76 97
[2018-11-24] MEDS: CEROVITE ADV FORMULA TAB PO SCH (08:47)
[2018-11-24] MEDS: ASCORBIC ACID 500 MG TAB PO SCH ×2 (08:47→20:42)
[2018-11-24] MEDS: CeleBREX 200 MG CAP PO SCH ×2 (08:47→20:42)
[2018-11-24] MEDS: MULTIVITAMIN TAB PO SCH (08:47)
[2018-11-24] MEDS: DOCUSATE SODIUM 100 MG CAP PO SCH ×2 (08:47→20:43)
--- NOTE | 2018-11-24 10:23 | Anesthesiology Progress Note ---
Date of Service November 24, 2018 Anesthesia Post Procedure Vital Signs Vital Signs: Temp Pulse Pulse Resp BP Pulse Ox 11/24/18 07:13 36.8 C 92 H 18 126/75 98 11/23/18 22:50 36.9 C 90 18 119/76 97 11/23/18 20:08 36.8 C 91 H 16 136/78 98 11/23/18 17:56 37.3 C 86 16 117/77 94 11/23/18 17:25 37.1 C 79 16 124/76 95 11/23/18 15:57 36.6 C 88 16 122/83 100 11/23/18 15:28 36.6 C 84 16 129/81 99 11/23/18 15:00 36.6 C 86 16 102/61 95 11/23/18 14:45 37.3 C 81 17 104/63 95 11/23/18 14:35 86 18 109/64 95 11/23/18 14:25 86 18 105/63 97 11/23/18 14:15 85 19 114/67 95 11/23/18 14:05 84 19 116/65 97 11/23/18 13:55 82 17 120/65 100 11/23/18 13:45 37.4 C 86 18 124/64 99 Pain Intensity Left Knee: Pain Intensity: 0 Notes Mental Status: alert / awake / arousable and participated in evaluation Patient Amnestic to Procedure: Yes Nausea / Vomiting: adequately controlled Pain: adequately controlled Airway Patency, RR, SpO2: stable & adequate BP & HR: stable & adequate Hydration State: stable & adequate Neuraxial Anesthesia: was administered and sensory block resolved Anesthetic Complications: no major complications apparent
[2018-11-24] MEDS: ASPIRIN 81 MG ECTAB PO SCH ×2 (10:24→20:42)
[2018-11-24] MEDS: OXYCODONE HCL IR 5 MG TAB (IMMEDIATE RELEASE) PO PRN ×3 (10:25→20:19)
[2018-11-24] MEDS: LORATADINE 10 MG TAB PO SCH (11:02)
--- NOTE | 2018-11-24 11:23 | Hospitalist Progress Note ---
Date of Service November 24, 2018 Assessment & Plan (1) Osteoarthritis of left knee: S/P L TKA by Dr. Winters POD #1 EBL 5ml tolerated procedure well pain/wound per ortho activity and therapies as directed by ortho monitor cbc for abl anemia (pre-op hgb 12.4, now 11.3) encourage incentive spirometry Pt treated for UTI pre operatively with Bactrim DS bid x 7 days, repeat urinalysis without bacteria presence (2) Hypertension: Normotensive On Lisinopril and HCTZ at home Will resume lisinopril this evening. Instructed to follow up with PCP upon discharge for instructions about resuming HCTZ (3) Hyperlipidemia: Continue simvastatin (4) Asthma: well controlled albuterol prn (5) Chronic headache: amitriptyline at HS (6) Anxiety: lorazepam prn mood stable (7) DVT prophylaxis: Per ortho Disposition: Per primary Follow up: PCP Zuleyma Marcum Patient was seen and examined in collaboration with Dr. Carter, please see addendum Thank you for this consultation. We will follow the patient with you during their hospital stay. You can reach [facility] via pager @ [phone]. Supervising Physician Co-Signing Physician Notes Patient is seen and examined at bedside. Patient is doing well postop. Patient underwent left TKA by Dr. Winters. Knee pain at surgical site is controlled. Denies any numbness, tingling in lower extremities, chest pain, shortness of breath, dizziness, nausea. On exam patient is moderately built and nourished, no apparent distress, normocephalic atraumatic lungs are clear to auscultation, S1-S2, + murmur, abdomen soft nontender, grossly no neurological focal deficits, Left knee:surgical site in dressing, no pedal edema. S/P Left TKA POD #1. Pain is controlled. Continue bowel regimen to prevent constipation. Activity, DVT prophylaxis per primary team. Monitor CBC for postop anemia. Agree with hold HCTZ for now. I personally reviewed the record. Patient is interviewed and examined at bedside. Patient's care is coordinated with Simona Simon PA-C. Please refer to the documentation above for details of patient's presentation and for discussion of other issues. Subjective Seen and examined. Feeling well. Pain is controlled, has been participating in therapy. Denies fever, chills, lightheadedness, headache, chest pain, SOB, abdominal pain, dysuria, diarrhea or lower extremity edema. Pre-op UTI treated with 7 day course of bactrim. Repeat UA without bacteria. Review of Systems Review of Systems: At least ten systems reviewed and negative except as noted in the HPI. Physical Exam Physical Exam: General Appearance: WD/WN, no apparent distress, sitting in bedside chair watching TV Head: normocephalic, atraumatic Eyes: normal inspection, PERRL, EOMI ENT: hearing grossly normal, pharynx normal (moist mucous membranes) Neck: supple, no JVD, no adenopathy Respiratory/Chest: lungs clear to auscultation. No wheezes, rales or rhonci. No respiratory distress or accessory muscle use Cardiovascular: regular rate, rhythm, 2/6 systolic murmur over precordium, normal peripheral pulses Abdomen/GI: normal bowel sounds, soft, non-tender to palpation Extremities/Musculoskelatal: Left knee surgical dressing clean, dry, intact. Hemovac visualized, No calf tenderness, normal capillary refill, no pedal edema Neurologic/Psych: alert, normal mood/affect, oriented x 3 Skin: normal color, warm/dry Results & Data Vital Signs (Past 12 Hours) Vital Signs Temp Pulse Resp BP Pulse Ox 11/24/18 07:13 36.8 C 92 H 18 126/75 98 Laboratory Results Short CBC 11/24/18 Range/Units 05:15 WBC 11.88 H (4.8-10.8) K/uL Hgb 11.3 L (12.0-16.0) g/dL Hct 33.5 L (37-47) % Plt Count 324 (130-400) K/uL BMP 11/24/18 05:15 Sodium 141 Potassium 3.6 Chloride 108 H Carbon Dioxide 29 BUN 27 H Creatinine 0.78 Glucose 100 H Calcium 9.6 Urine 11/23/18 Range/Units Unknown Urine Color Yellow Urine Appearance Clear (Clear) Urine pH 7.5 (4.5-7.5) Ur Specific [place] 1.017 (1.000-1.030) Urine Protein Negative (Negative) Urine Glucose (UA) Negative (Negative)
[2018-11-24] MEDS: LORazepam 0.5 MG TAB PO PRN ×2 (13:57→20:41)
[2018-11-24] MEDS: SENNA 8.6 MG TAB PO SCH (20:41)
[2018-11-24] MEDS: CALCIUM 600MG + VIT D 400 IU TAB PO SCH (20:42)
[2018-11-24] MEDS: AMITRIPTYLINE HCL 10 MG TAB PO SCH (20:43)
[2018-11-24] MEDS: SIMVASTATIN 40 MG TAB PO SCH (20:43)
[2018-11-24] MEDS: LISINOPRIL 20 MG TAB PO SCH (21:01)
[2018-11-25] MEDS: OXYCODONE HCL IR 5 MG TAB (IMMEDIATE RELEASE) PO PRN ×6 (00:44→22:01)
[2018-11-25] MEDS: FENOFIBRATE~ORDER AWAITING ACTION SCH ×3 (01:12→15:06)
[2018-11-25] MEDS: ACETAMINOPHEN 500 MG TAB PO SCH ×3 (05:45→21:13)
[2018-11-25] MEDS: LORazepam 0.5 MG TAB PO PRN (05:45)
[2018-11-25 06:11] LABS: Hematocrit (blood only) 32.2 % (37-47); Hemoglobin 10.9 g/dL (12.0-16.0); Mean Corpuscular Hgb Conc 33.9 g/dL (32-36); Mean Corpuscular Volume 95.5 fL (80-100); Platelet Count 297 K/uL (130-400); RDW Coefficient of Variation 13.1 % (11.5-14.5); RDW Standard Deviation 45.5 fL (36.4-46.3); Red Blood Count 3.37 M/uL (4.2-5.4); White Blood Count 8.29 K/uL (4.8-10.8)
[2018-11-25 06:48] LABS: BUN Creatinine Ratio 30.3 (10-20); Calcium 9.3 mg/dl (8.5-10.1); Creatinine Clr Calc Pharmacy 69.9 ml/min; Est GFR (African American) 100.6; Est GFR (Non-African American) 86.8; Magnesium 2.1 mg/dl (1.8-2.4); Potassium 3.9 mmol/L (3.5-5.1)
[2018-11-25] MEDS: TRAMADOL HCL 50 MG TABLET PO PRN ×2 (08:07→16:47)
--- NOTE | 2018-11-25 08:23 | Orthopedic Progress Note ---
Date of Service November 25, 2018 Assessment & Plan (1) Osteoarthritis of left knee: POD #2, Left TKA PT/ OT DVT proph- ASA, SCD's, TEDS D/C planning- Home w HH now likely tomorrow, will advise SS. As per medicine. Will add oxycontin and keep her for uncontrolled pain. Patient seen w Dr. Winters. Subjective POD #2, States pain is uncontrolled, taking 2 oxycodones at a time and its "better" but still not controlled that she feels she can do her PT. Denies sob, cp, n/v. Physical Exam Physical Exam: Left knee silverlon c/d/i,. no drainage, no erythema, no calf tenderness, toes and ankle mobile. A&Ox3. Results & Data Vital Signs (Past 12 Hours) Vital Signs Temp Pulse Resp BP Pulse Ox 11/25/18 07:01 36.5 C 89 16 117/73 96 11/25/18 00:04 36.9 C 82 14 123/76 94 11/24/18 21:00 125/76
[2018-11-25] MEDS: OXYCODONE HCL 10 MG TABCR (OXYCONTIN) PO SCH ×2 (09:31→21:03)
[2018-11-25] MEDS: ASCORBIC ACID 500 MG TAB PO SCH ×2 (09:32→21:04)
[2018-11-25] MEDS: ASPIRIN 81 MG ECTAB PO SCH ×2 (09:32→21:03)
[2018-11-25] MEDS: CeleBREX 200 MG CAP PO SCH ×2 (09:33→21:00)
[2018-11-25] MEDS: LORATADINE 10 MG TAB PO SCH (09:33)
[2018-11-25] MEDS: MULTIVITAMIN TAB PO SCH (09:34)
[2018-11-25] MEDS: CEROVITE ADV FORMULA TAB PO SCH (09:34)
[2018-11-25] MEDS: DOCUSATE SODIUM 100 MG CAP PO SCH ×2 (09:34→21:02)
--- NOTE | 2018-11-25 19:40 | Hospitalist Progress Note ---
Date of Service November 25, 2018 Assessment & Plan (1) Osteoarthritis of left knee: S/P left TKA. POD # 2. (2) Hypertension: Continue HCTZ and lisinopril. (3) Asthma: Stable. (4) DVT prophylaxis: Per Ortho protocol. (5) Encounter for consultation: Thank you for this consultation. We will follow the patient with you during their hospital stay. My cell # is [phone]. You can reach a member of the [facility] Medicine Team 18/01 via pager @ [phone]. Subjective Doing well postoperatively except for some postop pain. Passing flatus and stool. No chest pain, cough, SOB, nausea, vomiting. Physical Exam Constitutional: no acute distress Respiratory: no respiratory distress Auscultation: lungs clear to auscultation bilaterally Cardiovascular: Rate/Rhythm: regular rate and regular rhythm Heart Sounds: no gallop Vessels: no JVD Extremities: no calf tenderness and no edema Gastrointestinal (Abdomen): normal bowel sounds, soft, nontender, no hepatosplenomegaly Skin: no rashes, warm and dry Psychiatric: Orientation: alert and oriented x 3 Results & Data Vital Signs (Past 12 Hours) Vital Signs Temp Pulse Resp BP Pulse Ox 11/25/18 16:21 36.9 C 87 18 113/71 93 Laboratory Results Laboratory Results - last 24 hr 11/25/18 11/25/18 05:55 05:55 WBC 8.29 RBC 3.37 L Hgb 10.9 L Hct 32.2 L MCV 95.5 MCH 32.3 MCHC 33.9 RDW Std Deviation 45.5 RDW Coeff of Gracie 13.1 Plt Count 297 MPV 9.0 Sodium 140 Potassium 3.9 Chloride 106 Carbon Dioxide 29 Anion Gap 5.0 BUN 22 H Creatinine 0.74 Est Cr Clr Drug Dosing 69.9 Est GFR ( Amer) 100.6 Est GFR (Non-Af Amer) 86.8 BUN/Creatinine Ratio 30.3 H Glucose 95 Calcium 9.3 Magnesium 2.1
[2018-11-25] MEDS: CALCIUM 600MG + VIT D 400 IU TAB PO SCH (21:00)
[2018-11-25] MEDS: AMITRIPTYLINE HCL 10 MG TAB PO SCH (21:03)
[2018-11-25] MEDS: SIMVASTATIN 40 MG TAB PO SCH (21:04)
[2018-11-25] MEDS: LISINOPRIL 20 MG TAB PO SCH (21:04)
[2018-11-25] MEDS: SENNA 8.6 MG TAB PO SCH (21:04)
[2018-11-26] MEDS: FENOFIBRATE~ORDER AWAITING ACTION SCH ×2 (00:19→07:15)
[2018-11-26] MEDS: LORazepam 0.5 MG TAB PO PRN (01:09)
[2018-11-26] MEDS: ACETAMINOPHEN 500 MG TAB PO SCH ×2 (05:57→14:18)
[2018-11-26] MEDS: OXYCODONE HCL IR 5 MG TAB (IMMEDIATE RELEASE) PO PRN ×3 (06:10→14:18)
[2018-11-26] MEDS: LORATADINE 10 MG TAB PO SCH (08:41)
[2018-11-26] MEDS: CeleBREX 200 MG CAP PO SCH (08:41)
[2018-11-26] MEDS: ASCORBIC ACID 500 MG TAB PO SCH (08:41)
[2018-11-26] MEDS: DOCUSATE SODIUM 100 MG CAP PO SCH (08:41)
[2018-11-26] MEDS: OXYCODONE HCL 10 MG TABCR (OXYCONTIN) PO SCH (08:41)
[2018-11-26] MEDS: MULTIVITAMIN TAB PO SCH (08:41)
[2018-11-26] MEDS: CEROVITE ADV FORMULA TAB PO SCH (08:41)
[2018-11-26] MEDS: ASPIRIN 81 MG ECTAB PO SCH (08:41)
--- NOTE | 2018-11-26 08:49 | Orthopedic Progress Note ---
Date of Service November 26, 2018 Assessment & Plan (1) Osteoarthritis of left knee: POD #3, Left TKA PT/ OT DVT proph- ASA, SCD's, TEDS D/C planning- Home w HH now likely today As per medicine. Subjective POD #3, States pain much improved today with new pain regimen. Denies sob, cp, n/v. Review of Systems Review of Systems: All systems reviewed & are unremarkable except as noted in HPI & below Physical Exam Physical Exam: Dressing is c/d/i. No calf tenderness, sensation intact. N/V status intact Results & Data Vital Signs (Past 12 Hours) Vital Signs Temp Pulse Resp BP Pulse Ox 11/26/ 07:00 36.9 C 87 18 129/79 95 11/25/18 23:22 37.2 C 85 16 127/70 95
--- NOTE | 2018-12-04 18:11 | Discharge Summary ---
CHIEF COMPLAINT: Chronic left knee pain. HISTORY OF PRESENT ILLNESS: This is a 63-year-old female patient of Dr. Winters'shawn complaining of chronic left knee pain, longstanding, now progressively getting worse. The patient was diagnosed with end-stage osteoarthritis per clinical and radiographic exams. The patient failed conservative treatment and elected to proceed with a left total knee arthroplasty. PAST MEDICAL HISTORY: Mitral regurg, right bundle branch block, hysterectomy, hypercholesterolemia, asthma, anemia, spine problems, sciatica and obesity. POSTOPERATIVE COURSE: The patient underwent a left total knee arthroplasty on 11/23/2018. She was followed closely with physical therapy, pain control, DVT prophylaxis in the form of aspirin and medical consultation. The patient's main issue postoperatively was pain so much that she could not perform a physical therapy on postoperative day number 1. We did add OxyContin every 12 hours for the pain regimen. This did alleviate her pain and on discharge, her pain regimen and pain was under control. Otherwise, an uneventful postoperative course. PHYSICAL EXAMINATION: On discharge, left knee Silverlon dressing was clean, dry and intact. There was no redness or drainage. She had no calf tenderness. Negative Homans sign. Toes and ankle were mobile. Neurologically and neurovascularly, she was intact in her left lower extremity. DIAGNOSES: Status post left total knee arthroplasty with a history of mitral regurgitation, right bundle branch block, hysterectomy, hypercholesterolemia, asthma, anemia, spine problems, sciatica and obesity. PLAN: The patient was discharged home with Home Health Services. She will continue her preadmission medications with the addition of aspirin for DVT prophylaxis. She will go home on oxycodone and a week of OxyContin and she will follow up as scheduled as an outpatient.
== END 2018-11-26 14:27 | disposition home health service (06) | DRG 470 ==
LOC: ASU 08:48 → 3E 13:49